=== PATIENT | female | born 2000 | race Caucasian/White ===

== ENCOUNTER 2021-12-20 14:21 | Emergency (ER) | payer OTHER ==
[2021-12-20] MEDS ORDERED: XYLOCAINE 2% HCL 20 ML MDV IJ ONE (14:51)
[2021-12-20] MEDS ORDERED: Adacel Vial IM ONE ×2 (15:06→15:10)
[2021-12-20] MEDS ORDERED: XYLOCAINE 2% HCL 20 ML MDV ONE (15:09)
--- NOTE | 2021-12-20 15:11 | ERPHSYRPT ---
- History of Present Illness Time Seen by Provider: 12/20/21 14:30 Source: patient Exam Limitations: no limitations Patient Subjective Stated Complaint: Pt states "I was cutting up a dragon fruit and cut my fingers." Triage Nursing Assessment: PT presented alert and oriented X 3, skin wpd Pt ambulates with an upright steady gait, able to speak in clear full sentences. PT has approx 2 cm laceration noted to 5 digit second knuckle anterior side Physician History: Patient is a 21-year-old female presents to our ED for evaluation of a laceration. Patient dates she was cutting up a dragon fruit and accidentally lacerated her right fifth digit. Laceration is at the flexor crease of the PIP joint right fifth digit. No other injuries reported. No tendon involvement. Pain described as an ache that is localized. No radiation. No other injuries reported. Patient otherwise healthy. Tetanus not up-to-date. Mother at bedside. They voiced no other complaints or concerns at this time. Portions of this note were created with voice recognition technology. There may be grammatical, spelling, punctuation or sound alike errors Timing/Duration: today Severity: mild Modifying Factors: Improves With: nothing Associated Symptoms: denies symptoms Allergies/Adverse Reactions: No Known Drug Allergies Allergy (Verified 12/20/21 14:31) Home Medications: No Reportable Medications [No Reported Medications] 12/20/21 [History] Hx Tetanus, Diphtheria Vaccination/Date Given: No Hx Influenza Vaccination/Date Given: No Hx Pneumococcal Vaccination/Date Given: No Immunizations Up to Date: Yes Travel Risk - International Travel Have you traveled outside of the country in past 3 weeks: No - Coronavirus Screening Are you exhibiting any of the following symptoms?: No Symptoms: Shortness of Breath - Vaccine Status Have you recieved a Covid-19 vaccination: No - Review of Systems Constitutional: No Symptoms, No Fever, No Chills Eyes: No Symptoms Ears, Nose, & Throat: No Symptoms Respiratory: No Symptoms, No Cough, No Dyspnea Cardiac: No Symptoms, No Chest Pain, No Edema, No Syncope Abdominal/Gastrointestinal: No Symptoms, No Abdominal Pain, No Nausea, No Vomiting, No Diarrhea Genitourinary Symptoms: No Symptoms, No Dysuria Musculoskeletal: No Symptoms, No Back Pain, No Neck Pain Skin: No Symptoms, No Rash Neurological: No Symptoms, No Dizziness, No Focal Weakness, No Sensory Changes Psychological: No Symptoms Endocrine: No Symptoms Hematologic/Lymphatic: No Symptoms All Other Systems: Reviewed and Negative - Past Medical History Pertinent Past Medical History: No - Past Surgical History Past Surgical History: No - Social History Smoking Status: Never smoker Exposure to second hand smoke: No Drug Use: none Patient Lives Alone: No - Female History Hx Last Menstrual Period: Hx Now: No - Nursing Vital Signs Nursing Vital Signs: Initial Vital Signs Temperature 97.8 F 12/20/21 14:27 Pulse Rate 64 12/20/21 14:27 Respiratory Rate 18 12/20/21 14:27 Blood Pressure 120/75 12/20/21 14:27 O2 Sat by Pulse Oximetry 98 12/20/21 14:27 Pain Scale Pain Intensity 4 - Physical Exam General Appearance: no apparent distress, alert Eye Exam: PERRL/EOMI, eyes nml inspection Ears, Nose, Throat Exam: normal ENT inspection, TMs normal, pharynx normal, moist mucous membranes Neck Exam: normal inspection, non-tender, supple, full range of motion Respiratory Exam: normal breath sounds, lungs clear, airway intact, No respiratory distress Cardiovascular Exam: regular rate/rhythm, normal heart sounds, normal peripheral pulses Gastrointestinal/Abdomen Exam: soft, normal bowel sounds, No tenderness, No mass Back Exam: normal inspection, normal range of motion, No CVA tenderness, No vertebral tenderness Extremity Exam: normal inspection, normal range of motion, pelvis stable, other (1.5 cm laceration at the right fifth digit PIP flexor crease. Digit neurovascular intact distally. Compartments are soft. Cap refill less than 2 seconds.) Neurologic Exam: alert, oriented x 3, cooperative, normal mood/affect, nml cerebellar function, nml station & gait, sensation nml, No motor deficits Skin Exam: normal color, warm, dry, No rash Lymphatic Exam: No adenopathy SpO2 Interpretation: normal SpO2: 98 O2 Delivery: Room Air Procedures - Laceration/Wound Repair Finger Time of Procedure: 15:07 Wound Location: Right (Flexor crease right fifth digit PIP) Wound Length (cm): 1.5 Wound's Depth, Shape: superficial Wound Explored: clean Irrigated: Yes Hibiclens Prep: Yes Anesthesia: local Volume Anesthetic (ccs): 3 Wound Debrided: minimal Wound Repaired With: sutures Suture Size/Type: 5-0, nylon Number of Sutures: 2 Layer Closure?: No Sterile Dressing Applied?: Yes Splint Applied?: Yes Progress: Patient neurovascular intact distally pre and post procedure. 12/20/21 15:08 - Course Nursing assessment & vital signs reviewed: Yes Ordered Tests: Medication Summary Generic Name Dose Route Start Last Admin Trade Name Freq PRN Reason Stop Dose Admin Diphtheria/Tetanus/Acell Pertussis 0.5 ml 12/20/21 15:06 Tdap --Diph,Pertuss(Acell),Tet Vac/Pf 0.5 Ml Vial IM 12/20/21 15:07 .ONCE ONE Discontinued Medications Generic Name Dose Route Start Last Admin Trade Name Freq PRN Reason Stop Dose Admin Lidocaine HCl 5 ml 12/20/21 14:51 Lidocaine Hcl 2% 20 Ml Mdv IJ 12/20/21 14:52 STAT ONE - Progress Progress: improved Progress Note: Patient reassessed. Pain resolved after local anesthesia. Tetanus updated. 2 simple interrupted sutures placed at the flexor crease of the right fifth digit PIP. Patient tolerated procedure well. Patient neurovascular tact distally preprocedure patient neurovascular tact distally post procedure as well. No other injuries observed. Patient involved digit placed in a semiflexed AlumaFoam splint. Sutures stay intact for 10 days. Patient may remove the AlumaFoam splint after 48 hours. Mother understands that she may have the sutures removed by her primary care doctor. She is also welcome to come to our ED to have this procedure performed as well. They voiced no other complaints or concerns at this time. No indication for further work-up. No indication for antibiotics. The wound was not contaminated. will discharge home. Flexor tendon function of involved digit intact pre and post procedure. Portions of this note were created with voice recognition technology. There may be grammatical, spelling, punctuation or sound alike errors 12/20/21 15:11 Counseled pt/family regarding: diagnosis, need for follow-up - Departure Departure Disposition: Home Clinical Impression: Laceration Condition: Stable Critical Care Time: No Referrals: GEETHA PALACIOS [Primary Care Provider] - Follow up/PCP as directed Additional Instructions: Discharge/Care Plan SIMON SALAZAR was seen on 12/20/21 in the Emergency Room. The patient was counseled regarding Diagnosis,Lab results, Imaging studies, need for follow up and when to return to the Emergency Room. Prescriptions given: Discharge Note I have spoken with the patient and/or caregivers. I have explained the patient's condition, diagnosis and treatment plan based on the information available to me at this time. I have answered the patient's and/or caregiver's questions and addressed any concerns. The patient and/or caregivers have as good understanding of the patient's diagnosis, condition and treatment plan as can be expected at this point. The vital signs have been stable. The patient's condition is stable and appropriate for discharge from the emergency department. The patient will pursue further outpatient evaluation with the primary care physician or other designated or consulting physician as outlined in the discharge instructions. The patient and/or caregivers are agreeable to this plan of care and follow-up instructions have been explained in detail. The patient and/or caregivers have received these instruction. The patient/and or caregivers are aware that any significant change in condition or worsening of symptoms should prompt an immediate return to this or the closest emergency department or call 911.
[2021-12-20 15:32] VITALS: BP 116/68; PULSE 70; O2SAT 99
== END 2021-12-20 15:30 | disposition home or self-care (01) ==
LOC: ED 14:21
DX: S61.216A Laceration without foreign body of right little finger without damage to nail, initial encounter (principal); W26.0XXA Contact with knife, initial encounter; Y93.G1 Activity, food preparation and clean up; Z28.310 Unvaccinated for COVID-19
CPT/HCPCS: 12001; 90471; 90715; 96372; 99283